=== PATIENT | female | born 1970 | race Two or more races ===

== ENCOUNTER 2020-01-25 16:23 | Outpatient (CLI) | payer OTHER | END 2020-01-25 16:25 | disposition home or self-care (01) | LOC: RAD 16:23 | PROVIDERS: ATTEND Physical Medicine & Rehabilitation | DX: M75.122 Complete rotator cuff tear or rupture of left shoulder, not specified as traumatic (principal) ==

== ENCOUNTER 2020-01-26 13:50 | Outpatient (CLI) | payer OTHER | END 2020-01-26 14:08 | disposition home or self-care (01) | LOC: SONOGRAMA 13:50 | PROVIDERS: ATTEND Physical Medicine & Rehabilitation | DX: M75.122 Complete rotator cuff tear or rupture of left shoulder, not specified as traumatic (principal) ==